=== PATIENT | female | born 1995 | race Caucasian/White ===

== ENCOUNTER 2016-12-18 20:57 | Outpatient (CLI) | payer OTHER ==
[2016-12-18 21:15] VITALS: BP 117/75
[2016-12-19] MEDS ORDERED: MOTRIN800 MG PO (19:06)
== END 2016-12-18 21:50 | disposition home or self-care (01) ==
LOC: LDRP-OP 20:57 → 2WEST 20:58 → LDRP-OP 01-25 13:33
DX: O47.1 False labor at or after 37 completed weeks of gestation (principal); Z3A.38 38 weeks gestation of pregnancy
CPT/HCPCS: 59025; G0378

== ENCOUNTER 2016-12-19 14:13 | Inpatient (IN) | payer OTHER ==
[2016-12-19] VITALS (8 sets, daily range): BP systolic 103–117; BP diastolic 55–83
[~2016-12-19] VITALS: Ht 170.2 cm; Wt 86.2 kg
[2016-12-19 15:42] LABS: EOSINOPHIL (%) 0.2 % (0-5); HEMATOCRIT 37.3 % (36.0-46.0); IMMATURE GRANULOCYTE (%) 0.5 % (0.0-0.7); IMMATURE GRANULOCYTE COUNT 0.1 K/uL; INSTRUMENT ABS NEUTROPHIL CT 10.7 K/uL; LYMPHOCYTE COUNT 1.6 K/uL (1.0-2.8); MCH 31.7 PG (29.0-34.0); MCHC 35.1 G/DL (30.0-36.0); MCV 90.3 FL (83-99); MEAN PLAT.VOLUME 10.6 uM^3 (9.5-12.4); MONOCYTE (%) 5.9 % (3-12); MONOCYTE COUNT 0.8 K/uL (0-0.8); NEUTROPHIL COUNT 10.7 K/uL (1.8-6.4); PLATELET COUNT 175 K/uL (156-360); RBC DIS.WIDTH-CV 12.6 % (11.8-14.6); RBC DIS.WIDTH-SD 41.2 % (39-53); RED BLOOD COUNT 4.13 M/uL (3.80-5.20); WHITE BLOOD COUNT 13.2 K/uL (4.1-10.2)
[2016-12-19] MEDS ORDERED: MOTRIN800 MG PO (19:06)
[2016-12-20 07:37] VITALS: BP 99/63
[2016-12-20 15:28] VITALS: BP 108/64
[2016-12-20 23:11] VITALS: BP 113/78
[2016-12-21 08:41] VITALS: BP 112/63
== END 2016-12-21 13:00 | disposition home or self-care (01) | DRG 775 ==
LOC: LDRP-OP 14:13 → 2WEST 14:14 → LDRP-OP 01-25 22:20
PROVIDERS: Midwife
DX: O80 Encounter for full-term uncomplicated delivery (principal); Z3A.39 39 weeks gestation of pregnancy; Z37.0 Single live birth
CPT/HCPCS: 85025